=== PATIENT | female | born 1965 | race African-American/Black ===

== ENCOUNTER 2017-06-24 00:33 | Emergency (ER) | payer BC ==
[~2017-06-24] VITALS: Ht 167.6 cm; Wt 68.0 kg
[~2017-06-24 00:33] MED LIST: ASPI-1159 PO; ATOR40TA70 PO; CLON1PAT10 TD; HCTZ; LISI10TA5 PO; PREG20SO PO; WARF2.5T47 PO
[2017-06-24 00:35] VITALS: BP 119/69
== END 2017-06-24 01:54 | disposition left against medical advice (07) ==
LOC: ER 00:33
DX: R41.82 Altered mental status, unspecified (principal); Z53.21 Procedure and treatment not carried out due to patient leaving prior to being seen by health care provider

== ENCOUNTER 2021-04-22 17:37 | Emergency (ER) | payer BC, MEDICAID, OTHER ==
[~2021-04-22] VITALS: Ht 180.3 cm; Wt 61.0 kg
[~2021-04-22 17:37] MED LIST changes: -ASPI-1159 PO; +ASPI-1497 PO; +LISI10TA26 PO; -LISI10TA5 PO
[2021-04-22 17:44] VITALS: BP 157/119
== END 2021-04-22 22:29 | disposition left against medical advice (07) ==
LOC: ER 17:37
DX: Z53.21 Procedure and treatment not carried out due to patient leaving prior to being seen by health care provider (principal); I49.9 Cardiac arrhythmia, unspecified
CPT/HCPCS: 93005

== ENCOUNTER 2023-02-23 14:04 | Inpatient (IN) | payer SELFPAY ==
[~2023-02-23] VITALS: Ht 180.3 cm; Wt 64.5 kg
[2023-02-23 14:55] LABS: BASOPHILS % 1.2 % (0.0-2.0); DIFFERENTIAL COMMENT 0; EOSINOPHILS % 1.5 % (0.0-5.0); HEMATOCRIT. 32.4 % (36.0-48.0); HEMOGLOBIN. 10.8 g/dL (12.0-16.0); LYMPHOCYTES % 28.5 % (20.0-50.0); MEAN CORPUSCULAR HEMOGLOBIN 34.7 pg (28.0-32.0); MEAN CORPUSCULAR HGB CONC 33.3 g/dL (31.0-37.0); MEAN CORPUSCULAR VOLUME 104.1 fL (81.0-99.0); MEAN PLATELET VOLUME 8.4 fl (7.4-10.4); MONOCYTES % 8.9 % (2.0-8.0); NEUTROPHILS % 59.9 % (40.0-76.0); PLATELET 359 x1000/uL (130-400); RED BLOOD CELL COUNT 3.11 mill/uL (4.2-5.4); RED CELL DISTRIBUTION WIDTH 15.2 % (11.6-14.6); WHITE BLOOD COUNT 9.4 x1000/uL (4.5-11.0)
[2023-02-23 15:03] LABS: CHLORIDE 110 mEq/L (98-107); INDEX HEMOLYSI 4 (1-3); INDEX ICTERIC 1 (1-4); INDEX LIPEMIC 1 (1-3); SODIUM 142 mEq/L (136-145)
[2023-02-23 15:05] LABS: POTASSIUM 4.1 mEq/L (3.5-5.1)
[2023-02-23 15:11] LABS: CLARITY URINE CLEAR (CLEAR); COLOR URINE DARK YELLOW (YELLOW); GLUCOSE URINE NEGATIVE (NEGATIVE); KETONES URINE NEGATIVE (NEGATIVE); LEUKOCYTE ESTERASE URINE TRACE (NEGATIVE); NITRITE URINE NEGATIVE (NEGATIVE); OCCULT BLOOD URINE NEGATIVE (NEGATIVE); PH URINE 5.5 (4.5-8.0); PROTEIN URINE 1+ (NEGATIVE); SPECIFIC GRAVITY URINE 1.053 (1.005-1.030)
[2023-02-23 15:13] LABS: ALANINE AMINOTRANSFERASE 20 IU/L (13-61); ALBUMIN 2.1 g/dL (3.4-5.0); ASPARTATE AMINOTRANSFERASE 42 IU/L (15-37); BILIRUBIN TOTAL 0.7 mg/dL (0.1-1.0); CALCIUM 8.6 mg/dL (8.5-10.1); CARBON DIOXIDE 29 mEq/L (21-32); CREATININE 0.4 mg/dL (0.6-1.3); GLUCOSE 70 mg/dL (70-105); PROTEIN TOTAL 6.6 g/dL (6.0-8.3); TROPONIN I HIGH SENSITIVITY 43 ng/L (<54); UREA NITROGEN BLOOD 9 mg/dL (7-21)
[2023-02-23 15:43] LABS: BACTERIA URINE 1+; RBC URINE 0-2 /hpf (0-2); SQUAMOUS EPITHELIAL CELL URINE 1+ /lpf (RARE/1+); WBC URINE 0-2 /hpf (0-2)
[2023-02-23] MEDS ORDERED: SODIUM CHLORIDE 0.9% 1,000 ML IV ONE (19:00)
[2023-02-23] MEDS ORDERED: FUROSEMIDE 40MG/4ML VIAL IVP ONE (19:00)
[2023-02-23 20:03] LABS: INR 1.1; PARTIAL THROMBOPLASTIN TIME 25.4 sec (23.4-31.0)
[2023-02-23] MEDS ORDERED: ASPIRIN 81MG EC TABLET PO ONE (20:45)
[2023-02-23] MEDS ORDERED: ONDANSETRON HCL 4MG/2ML INJ IV STA (20:49)
[2023-02-23] MEDS ORDERED: MORPHINE SULFATE 4 MG/ML CPJ (NOT FOR IM USE) IV STA (20:49)
[2023-02-23] MEDS ORDERED: CEFTRIAXONE 1GM PREMIX 50 ML IV ONE (21:15)
[2023-02-23] MEDS ORDERED: AZITHROMYCIN 500MG/250ML 250 ML IV ONE (21:15)
[2023-02-23 22:12] LABS: LACTIC ACID 2.1 mmol/L (0.4-2.0)
[2023-02-24] MEDS ORDERED: ZOLPIDEM TARTRATE 5MG TABLET PO PRN (01:00)
[2023-02-24] MEDS ORDERED: ACETAMINOPHEN 325MG TABLET PO PRN ×2 (01:00)
[2023-02-24] MEDS ORDERED: ONDANSETRON HCL 4MG/2ML INJ IV PRN (01:00)
[2023-02-24] MEDS ORDERED: MAGNESIUM HYDROXIDE 400MG/5ML 30ML UDC PO PRN (01:00)
[2023-02-24] MEDS ORDERED: MAGNESIUM/ALUMINUM HYDROXIDE/SIMETHICONE 30ML UDC PO PRN (01:00)
[2023-02-24] MEDS ORDERED: IPRATROPIUM/ALBUTEROL 0.5-3(2.5)MG/3ML NEB HHN PRN (01:00)
[2023-02-24] MEDS ORDERED: CLONIDINE 0.1MG TABLET PO PRN (01:00)
[2023-02-24] MEDS ORDERED: DIPHENHYDRAMINE 50MG/ML VIAL IV PRN (01:00)
[2023-02-24] MEDS ORDERED: AZITHROMYCIN 500MG/250ML 250 ML IV NR (02:15)
[2023-02-24] MEDS ORDERED: ASPIRIN 81MG EC TABLET PO NR (02:15)
[2023-02-24 03:00] VITALS: BP 146/115; PULSE 89; RESP 26; TEMP 99.7
[2023-02-24 03:27] VITALS: BP 146/115; PULSE 99; RESP 16; TEMP 99.7
[2023-02-24] MEDS: HYDROCODONE/ACETAMINOPHEN 10/325MG TABLET PO PRN ×3 (03:42→22:57)
[2023-02-24 06:06] LABS: *AMPHETAMINES SCREEN URINE NEGATIVE (NEGATIVE); *BARBITURATES SCREEN URINE NEGATIVE (NEGATIVE); *BENZODIAZEPINES SCREEN URINE NEGATIVE (NEGATIVE); *COCAINE SCREEN URINE NEGATIVE (NEGATIVE); CANNABINOID URINE SCREEN PRESUMTIVE POSITIVE (NEGATIVE); ECSTASY MDMA SCREEN URINE NEGATIVE (NEGATIVE); OPIATES URINE SCREEN PRESUMTIVE POSITIVE (NEGATIVE); PHENCYCLIDINE URINE SCREEN NEGATIVE (NEGATIVE)
[2023-02-24] MEDS: SODIUM CHLORIDE 0.9% INJ 3ML FLUSH IVF SCH ×3 (06:07→22:57)
[2023-02-24] MEDS: GABAPENTIN 100MG CAPSULE PO SCH ×3 (06:07→22:55)
[2023-02-24 08:29] VITALS: BP 165/113; PULSE 98; RESP 16; TEMP 98.9
[2023-02-24] MEDS: CARVEDILOL 12.5MG TABLET PO SCH ×2 (08:30→22:57)
[2023-02-24] MEDS: CLONIDINE 0.2MG TABLET PO SCH ×2 (08:31→22:57)
[2023-02-24] MEDS ORDERED: BUDESONIDE 0.5MG/2ML NEB HHN SCH (09:00)
[2023-02-24] MEDS: ENOXAPARIN 40MG/0.4ML SYR SUBCUT SCH (09:00)
[2023-02-24 09:12] LABS: TROPONIN I HIGH SENSITIVITY 38 ng/L (<54)
[2023-02-24] MEDS ORDERED: HYDRALAZINE 20MG/ML VIAL IV PRN (09:30)
[2023-02-24 12:00] VITALS: BP 107/75; PULSE 69; RESP 24; TEMP 98.8
[2023-02-24 12:53] LABS: HEPATITIS B SURFACE ANTIGEN NEGATIVE
[2023-02-24] MEDS: AMLODIPINE 10MG TABLET PO SCH (13:00)
[2023-02-24 13:22] LABS: HEPATITIS C VIR.AB 0.09 INDEXVAL (0.00-0.80)
[2023-02-24 16:00] VITALS: BP 126/92; PULSE 69; RESP 15; TEMP 98.9
[2023-02-24 17:37] LABS: TROPONIN I HIGH SENSITIVITY 25 ng/L (<54)
[2023-02-24] MEDS: FUROSEMIDE 40MG/4ML VIAL IVP SCH (18:28)
[2023-02-24 20:00] VITALS: BP 140/90; PULSE 80; RESP 25; TEMP 98.8
[2023-02-24] MEDS ORDERED: ATORVASTATIN CALCIUM 40MG TABLET PO SCH (21:00)
[2023-02-24] MEDS ORDERED: FAMOTIDINE 20MG TABLET PO SCH (21:00)
[2023-02-25 04:00] VITALS: BP 135/92; PULSE 76; RESP 20; TEMP 98
[2023-02-25] MEDS: GABAPENTIN 100MG CAPSULE PO SCH (06:36)
[2023-02-25] MEDS: SODIUM CHLORIDE 0.9% INJ 3ML FLUSH IVF SCH (06:36)
[2023-02-25 07:01] LABS: DIFFERENTIAL COMMENT 0; EOSINOPHILS % 3.7 % (0.0-5.0); HEMATOCRIT. 25.5 % (36.0-48.0); HEMOGLOBIN. 8.7 g/dL (12.0-16.0); LYMPHOCYTES % 36.6 % (20.0-50.0); MEAN CORPUSCULAR HEMOGLOBIN 35.3 pg (28.0-32.0); MEAN CORPUSCULAR VOLUME 103.7 fL (81.0-99.0); MEAN PLATELET VOLUME 8.5 fl (7.4-10.4); MONOCYTES % 12.5 % (2.0-8.0); NEUTROPHILS % 46.2 % (40.0-76.0); PLATELET 242 x1000/uL (130-400); RED BLOOD CELL COUNT 2.46 mill/uL (4.2-5.4); RED CELL DISTRIBUTION WIDTH 15.1 % (11.6-14.6); WHITE BLOOD COUNT 6.7 x1000/uL (4.5-11.0)
[2023-02-25 07:56] VITALS: BP 157/112; PULSE 84; RESP 20; TEMP 98
[2023-02-25 08:16] LABS: CHLORIDE 108 mEq/L (98-107); INDEX HEMOLYSI 1 (1-3); INDEX ICTERIC 1 (1-4); INDEX LIPEMIC 1 (1-3); POTASSIUM 3.4 mEq/L (3.5-5.1); SODIUM 141 mEq/L (136-145)
[2023-02-25 08:25] LABS: CALCIUM 8.5 mg/dL (8.5-10.1); CARBON DIOXIDE 30 mEq/L (21-32); CHOLESTEROL 106 mg/dL (<200); CREATININE 0.5 mg/dL (0.6-1.3); GLUCOSE 110 mg/dL (70-105); HDL CHOLESTEROL 39 mg/dL (40-59); LDL CHOLESTEROL 59 mg/dL (5-100); TRIGLYCERIDE 90 mg/dL (0-150); UREA NITROGEN BLOOD 11 mg/dL (7-21)
[2023-02-25] MEDS ORDERED: POTASSIUM CHLORIDE 20MEQ TABLET SR PO SCH (09:00)
[2023-02-25] MEDS: FUROSEMIDE 40MG/4ML VIAL IVP SCH (09:18)
[2023-02-25] MEDS: CARVEDILOL 12.5MG TABLET PO SCH (09:20)
[2023-02-25] MEDS: HYDROCODONE/ACETAMINOPHEN 10/325MG TABLET PO PRN (09:20)
[2023-02-25] MEDS: CLONIDINE 0.2MG TABLET PO SCH (09:21)
[2023-02-25] MEDS: AMLODIPINE 10MG TABLET PO SCH (09:21)
[2023-02-25] MEDS: ENOXAPARIN 40MG/0.4ML SYR SUBCUT SCH (09:22)
[2023-02-25] MEDS ORDERED: NICOTINE 14MG PATCH TD SCH (09:45)
[2023-02-25 11:37] VITALS: BP 157/112; PULSE 84; TEMP 98; O2SAT 100
[2023-02-25 12:00] VITALS: BP 157/112; PULSE 84; RESP 20; TEMP 98
== END 2023-02-25 14:30 | disposition home or self-care (01) | DRG 194 ==
LOC: ER 14:04 → EDBEDREQ 18:53 → MICUSO 22:20 → EDBEDREQTM 22:30 → EDBEDREQ 22:30 → 3WST 02-24 03:22
PROVIDERS: ADMIT Internal Medicine; ATTEND Internal Medicine
DX: I11.0 Hypertensive heart disease with heart failure (principal); J44.1 Chronic obstructive pulmonary disease with (acute) exacerbation; I50.43 Acute on chronic combined systolic (congestive) and diastolic (congestive) heart failure; M19.90 Unspecified osteoarthritis, unspecified site; I25.10 Atherosclerotic heart disease of native coronary artery without angina pectoris; F17.200 Nicotine dependence, unspecified, uncomplicated; M54.9 Dorsalgia, unspecified; Z20.822 Contact with and (suspected) exposure to COVID-19; G89.29 Other chronic pain; I08.0 Rheumatic disorders of both mitral and aortic valves; I25.5 Ischemic cardiomyopathy; D64.9 Anemia, unspecified; I25.2 Old myocardial infarction; Z79.82 Long term (current) use of aspirin; Z90.710 Acquired absence of both cervix and uterus; Z95.5 Presence of coronary angioplasty implant and graft; Z98.84 Bariatric surgery status
CPT/HCPCS: 36415; 71045; 71275; 80048; 80053; 80061; 80305; 81003; 83605; 83735; 83880; 84484; 85025; 85379; 86803; 87340; 87426; 93005; 93306; 93970; 99291; C9803; J0456; J0696; J1650; J1940; J2270; J2405; J7030